=== PATIENT | female | born 1980 | race Caucasian/White ===

== ENCOUNTER 2020-10-20 09:55 | Emergency (ER) | payer SELFPAY ==
[2020-10-20 10:03] VITALS: BP 150/82; PULSE 88; RESP 16; TEMP 36.6; O2SAT 100; BMI 25.7
--- NOTE | 2020-10-20 10:15 | USR_ITS ---
PROCEDURE INFORMATION: Exam: US Duplex Left Lower Extremity Veins, Limited Exam date and time: 10/20/2020 10:15 AM Age: 40 years old Clinical indication: Pain; Leg, upper; Left; Additional info: Pain/ knot posterior knee TECHNIQUE: Imaging protocol: Real-time Duplex ultrasound of the Left Lower Extremity with 2-D kline scale, color Doppler flow and spectral waveform analysis with image documentation. Limited exam focused on the left lower extremity veins. COMPARISON: No relevant prior studies available. FINDINGS: Left deep veins: No deep venous thrombosis in the visualized left common femoral, profunda femoris, superficial femoral, popliteal, peroneal, or posterior tibial veins. Left superficial veins: Saphenofemoral junction is patent without thrombus. Soft tissues: Complex popliteal cysts measuring 4.8 x 1.3 x 2.8 cm and 2.9 x 1.3 x 2.3 cm. US/CV venous duplex [facility] [id number] IMPRESSION: 1. No deep venous thrombosis in the visualized left lower extremity. 2. Complex popliteal cysts, with measurements described above.
--- NOTE | 2020-10-20 10:16 | ECG_ITS ---
[facility] Test Date: 2020-10-20 Pat Name: Carmela Valdez Department: Room: Gender: Female Online Marketing Specialist: : 1980 Requested By: Fariha Payne Order Number: [id number] Júnior MD: Juli Norman M.D. Measurements Intervals [place] Rate: 79 P: 22 [place]: 127 QRS: -3 QRSD: 80 T: 26 QT: 367 QTc: 422 Interpretive Statements SINUS RHYTHM LOW QRS VOLTAGE IN PRECORDIAL LEADS [QRS DEFLECTION < 1.0 mV IN CHEST LEADS] POSSIBLE ANTERIOR MYOCARDIAL INFARCTION [30 ms Q WAVE IN V3/V4, OR R < 0.2 mV IN V4], OF INDETERMINATE AGE No previous ECG available for comparison Electronically Signed On 10-20-2020 21:08:19 CDT by Juli Norman M.D. [id number]
--- NOTE | 2020-10-20 10:16 | ED_ITS ---
HPI - Chest Pain General: Chief Complaint: Chest Pain Stated Complaint: cp, L arm pain and knot on left leg Time Seen by Provider: 10/20/20 10:04 Source: patient Mode of arrival: ambulatory Limitations: no limitations History of Present Illness: HPI narrative: Patient is a 40-year-old female who presents to ED today with a complaint of chest pain. She also has a complaint of a knot to the posterior aspect of her left knee that she has noticed over the past few days. Patient tells me she initially attributed it to a muscle cramp that she states she gets frequently secondary to her fibromyalgia. She has not noticed any diffuse lower extremity swelling. Denies calf pain. No color or temperature changes to her extremity. She tells me she was headed out of town earlier this morning headed to [place] to visit family when she began having pain in the left side of her chest. She states the pain then triggered her anxiety. She states they turned around the vehicle and came to the ED for evaluation. Patient has no previous cardiac or pulmonary history. She is complaining of some left arm tingling. Pain in her chest does not have any radiation. It is not worse with deep inhalation. She does not complain of shortness of breath or difficulty breathing. No risk factors for PE. No recent URI. No fevers. Vital signs are stable upon arrival. MD complaint: chest pain Pertinent past history: other (anxiety, fibromyalgia) Onset (ago): hour(s) Timing of current episode: constant Prior episodes: No Onset: during rest Pain location: substernal and left chest Pain radiation: none Quality: sharp Relieving factors: nothing Exacerbating factors: nothing Associated symptoms: Reports other (reports L arm tingling); Deny abdominal pain, dyspnea, fever(s), nausea, palpitations, syncope or vomiting Treatment prior to arrival: none Risk Factors: Thoracic aortic dissection risk factors: none Related Data: On Oral Contraceptives: No Review of Systems Const: Reports: other (reports chronic pain related to fibromyalgia ); Denies: fever(s), chills, body aches, fatigue or malaise Eyes: Denies: change in vision or blurry vision Card: Reports: chest pain; Denies: palpitations, irregular heart rhythm, edema, swelling of feet/ankles, lightheadedness, syncope, pre-syncope, dyspnea on exertion, orthopnea, leg pain with exertion or acrocyanosis Resp: Denies: dyspnea, productive cough, non-productive cough, wheezing, stridor, pain on inspiration, change in phlegm color, hemoptysis or chest congestion GI: Denies: abdominal pain, nausea, vomiting, heartburn or diarrhea : Denies: flank pain or dysuria Musc: Reports: extremity pain (reports knot behind L knee); Denies: neck pain, back pain, joint pain or joint swelling Skin/Breast: Denies: rash Neuro: Denies: headache(s), numbness in extremities, weakness in extremities, sensory changes or dizziness Psych: Reports: anxiety Physical Exam Const: COMMON NORMALS: no acute distress, average body habitus, patient oriented x3, no limitations, healthy appearing, alert and well nourished GENERAL APPEARANCE: cooperative ORIENTATION/CONSCIOUSNESS: Yes awake, Yes oriented to person, Yes oriented to place and Yes oriented to time HENMT: COMMON NORMALS: normocephalic and atraumatic HEAD & SCALP: normocephalic and atraumatic Chest: COMMONS NORMALS: normal inspection of the chest and normal palpation of entire chest wall Resp: COMMON NORMALS: normal respiratory effort and clear to auscultation bilaterally AUSCULTATION: clear to auscultation bilaterally Cardio: COMMON NORMALS: regular rate and regular rhythm RATE: regular rate RHYTHM: regular rhythm GI: COMMON NORMALS: Normal to inspection, nondistended, normoactive bowel sounds present, Soft to palpation, non-tender, No hepatosplenomegaly present and no masses PALPATION: Yes Soft to palpation and Yes No hepatosplenomegaly present Extremity: COMMON NORMALS: full ROM, capillary refill normal, no joint enlargement, no clubbing, cyanosis or edema, no calf tenderness and no pedal edema NARRATIVE EXTREMITY EXAM: pt has palpable knot to medial aspect of L posterior knee near popliteal fossa; there is no redness/warmth; no calf swelling or tenderness; negative Vlad's Neuro: COMMON NORMALS: patient oriented x3 SENSORIUM/ORIENTATION: Yes alert, Yes oriented to person, Yes oriented to place and Yes oriented to time Skin: COMMON NORMALS: no rashes or lesions noted GENERAL SKIN EXAM: no rashes or lesions noted Course Vital Signs: Vital signs: Vital Signs Temperature 97.9 F 10/20/20 11:54 Pulse Rate 88 10/20/20 10:03 Respiratory Rate 16 06/13/21 11:54 Blood Pressure 150/82 10/20/20 10:03 Pulse Oximetry 100 10/20/20 11:54 MDM - Chest Pain MDM Narrative: Medical decision making narrative: Patient clinically is in no acute distress. Her vital signs are stable. Labs including CBC, CMP, troponin, D-dimer all are non-concerning. CXR is normal. EKG without ischemic changes. Ultrasound of patient's left lower extremity showing cystic-like structure to area of concern most likely Desai's Cyst. Patient is stable for discharge at this time with follow-up with PCP next week if symptoms persist. Return to ED precautions given. Lab Data: Labs: Lab Results 10/20/20 10/20/20 10/20/20 Range/Units 10:38 10:38 10:38 WBC 12.9 H (4.0-10.0) 10^3/ uL RBC 5.15 (4.1-5.3) 10^6/u L Hgb 13.1 (11.5-15.3) g/dL Hct 41.7 (37.0-47.0) % MCV 81.0 (81-99) fL MCH 25.4 L (28.0-34.0) pg MCHC 31.4 (30.0-36.0) g/dL RDW 17.2 H (12.1-15.1) % Plt Count 435 H (130-400) 10^3/c mm MPV 10.5 H (7.4-10.4) fL Neut % (Auto) 56.0 % Lymph % (Auto) 33.8 % Sutter % (Auto) 8.6 % Eos % (Auto) 0.7 % Baso % (Auto) 0.4 % Neut # (Auto) 7.25 (1.8-7.7) 10^3/u L Lymph # (Auto) 4.4 (0.8-4.8) 10^3/u L Sutter # (Auto) 1.1 H (0.2-0.9) 10^3/u L Eos # (Auto) 0.1 (0.0-0.8) 10^3/u L Baso # (Auto) 0.1 (0.0-0.1) 10^3/u L Nucleated RBC % (a uto) 0 % Nucleated RBCs # 0.0 /100WBC D-Dimer (0-0.59) ug/mIFE U Sodium 130 L (136-145) mmol/L Potassium 3.9 (3.5-5.1) mmol/L Chloride 97 L (98-107) mmol/L Carbon Dioxide 25 (22-29) mmol/L Anion Gap 11.9 (5-19) BUN 9 (6-20) mg/dL Creatinine 0.4 L (0.5-0.9) mg/dL GFR Calculation 178.6 H (90-130) mL/min Glucose 79 (65-115) mg/dL Calculated Osmolal ity 268 L (285-295) mOsm/k g Calcium 9.2 (8.5-10.5) mg/dL Total Bilirubin 0.2 (0.15-1.2) mg/dL AST 14 (0-32) U/L ALT 13 (0-33) U/L Alkaline Phosphata se 111 H (35-105) IU/L Troponin T Baselin e (0-10) ng/L Total Protein 7.3 (6.6-8.7) g/dL Albumin 4.7 (3.5-5.2) g/dL Globulin 2.6 (1.3-4.6) g/dL HCG, Qual Negative (Negative) 10/20/20 10/20/20 Range/Units 10:38 11:07 WBC (4.0-10.0) 10^3/ uL RBC (4.1-5.3) 10^6/u L Hgb (11.5-15.3) g/dL Hct (37.0-47.0) % MCV (81-99) fL MCH (28.0-34.0) pg MCHC (30.0-36.0) g/dL RDW (12.1-15.1) % Plt Count (130-400) 10^3/c mm MPV (7.4-10.4) fL Neut % (Auto) % Lymph % (Auto) % Sutter % (Auto) % Eos % (Auto) % Baso % (Auto) % Neut # (Auto) (1.8-7.7) 10^3/u L Lymph # (Auto) (0.8-4.8) 10^3/u L Sutter # (Auto) (0.2-0.9) 10^3/u L Eos # (Auto) (0.0-0.8) 10^3/u L Baso # (Auto) (0.0-0.1) 10^3/u L Nucleated RBC % (a uto) % Nucleated RBCs # /100WBC D-Dimer <= 0.27 (0-0.59) ug/mIFE U Sodium (136-145) mmol/L Potassium (3.5-5.1) mmol/L Chloride (98-107) mmol/L Carbon Dioxide (22-29) mmol/L Anion Gap (5-19) BUN (6-20) mg/dL Creatinine (0.5-0.9) mg/dL GFR Calculation (90-130) mL/min Glucose (65-115) mg/dL Calculated Osmolal ity (285-295) mOsm/k g Calcium (8.5-10.5) mg/dL Total Bilirubin (0.15-1.2) mg/dL AST (0-32) U/L ALT (0-33) U/L Alkaline Phosphata se (35-105) IU/L Troponin T Baselin e 6 (0-10) ng/L Total Protein (6.6-8.7) g/dL Albumin (3.5-5.2) g/dL Globulin (1.3-4.6) g/dL HCG, Qual (Negative) Imaging Data^: CXR: My impression: NAD Radiologist's impression: [address] [address] XRay Report Signed Patient: Carmela Valdez Unit #: [id number] : 1980 Age/Sex: 40 / F ADM Date: 10/20/20 Loc: ER Room/Bed: Attending Dr: Ordering Provider/Ordering MD: Fariha Payne Date of Service: 10/20/20 Procedure(s): XR chest 1V portable [id number] Accession Number(s): [id number] Report Number: [id number] PROCEDURE INFORMATION: Exam: XR Chest Exam date and time: 10/20/2020 10:15 AM Age: 40 years old Clinical indication: Chest wall pain; Additional info: Chest pain TECHNIQUE: Imaging protocol: XR of the chest. Views: 1 view. COMPARISON: No relevant prior studies available. FINDINGS: Lungs: Hyperinflation, without acute airspace disease. Pleural spaces: No pleural effusion. Heart/Mediastinum: Normal configuration of the heart. Bones/joints: Unremarkable. XR/XR chest 1V portable [id number] IMPRESSION: Hyperinflation, without acute airspace or pleural disease. Dictated By: Milton Rodriguez MD Signed By: Milton Rodriguez MD Signed Date/Time: 10/20/20 1200 DD/ 1158 EKG Data^: EKG 1: EKG interpretation date: 10/20/20 EKG interpretation time: 10:23 Interpretation: Sinus rhythm Rate [address] elevation or depression changes noted Discharge Plan Discharge Patient Disposition: Home Clinical Impression: Synovial cyst of popliteal space [Desai], left knee, Chest pain, non-cardiac Condition: Stable Prescriptions: No Action Dilaudid 4 mg Tablet 4 mg PO Q6H RF: 0 Discharge Orders: Discharge ED (Routine); Ordered 10/20/20 Ordered By: Fariha Payne Patient Instructions: Chest Pain - Noncardiac, Desai's Cyst (ED) Coding Level of Care Code ED Perinatal Breastfeeding Assistant for Chg Fwd Exam Comprehensive
[2020-10-20 10:47] LABS: Basophils # 0.1 10^3/uL (0.0-0.1); Basophils % 0.4 %; Eosinophils # 0.1 10^3/uL (0.0-0.8); Eosinophils % 0.7 %; Hematocrit 41.7 % (37.0-47.0); Hemoglobin 13.1 g/dL (11.5-15.3); Lymphocytes # 4.4 10^3/uL (0.8-4.8); Lymphocytes % 33.8 %; Mean Corpuscular HGB Conc 31.4 g/dL (30.0-36.0); Mean Corpuscular Hemoglobin 25.4 pg (28.0-34.0); Mean Platelet Volume 10.5 fL (7.4-10.4); Monocytes # 1.1 10^3/uL (0.2-0.9); Monocytes % 8.6 %; Neutrophils # 7.25 10^3/uL (1.8-7.7); Nucleated Red Blood Cells % 0 %; Platelet Count 435 10^3/cmm (130-400); Red Blood Count 5.15 10^6/uL (4.1-5.3); Red Cell Distribution Width 17.2 % (12.1-15.1); White Blood Count 12.9 10^3/uL (4.0-10.0)
[2020-10-20 10:58] LABS: HCG, Serum Qual Negative (Negative)
[2020-10-20 11:07] LABS: Alanine Aminotransferase 13 U/L (0-33); Albumin Level 4.7 g/dL (3.5-5.2); Alkaline Phosphatase 111 IU/L (35-105); Anion Gap 11.9 (5-19); Aspartate Amino Transferase 14 U/L (0-32); Blood Urea Nitrogen 9 mg/dL (6-20); Calcium 9.2 mg/dL (8.5-10.5); Carbon Dioxide 25 mmol/L (22-29); Chloride 97 mmol/L (98-107); Globulin 2.6 g/dL (1.3-4.6); Glomerular Filtration Rate 178.6 mL/min (90-130); Glucose 79 mg/dL (65-115); Osmolality Calculated 268 mOsm/kg (285-295); Potassium 3.9 mmol/L (3.5-5.1); Sodium 130 mmol/L (136-145); Total Bilirubin 0.2 mg/dL (0.15-1.2); Total Protein 7.3 g/dL (6.6-8.7)
[2020-10-20 11:08] LABS: Troponin(5th) Baseline 6 ng/L (0-10)
[2020-10-20 11:33] LABS: D Dimer <= 0.27 ug/mIFEU (0-0.59)
[2020-10-20 11:54] VITALS: RESP 16; TEMP 36.6; O2SAT 100
== END 2020-10-20 11:54 | disposition home or self-care (01) ==
PROVIDERS: Emergency Provider Physician Assistant
DX: R07.89 Other chest pain (principal); M71.22 Synovial cyst of popliteal space [Baker], left knee
CPT/HCPCS: 36415; 71045; 80053; 84484; 84703; 85025; 85378; 93005; 93971; 99283